=== PATIENT | female | born 1970 | race Caucasian/White ===

== ENCOUNTER 2025-06-23 09:04 | Outpatient (CLI) | payer OTHER, SELFPAY | END 2025-06-23 09:05 | disposition home or self-care (01) | LOC: NFLDREF 06-26 17:23 | PROVIDERS: PCP Family Medicine; Referring Provider Family Medicine; Visit Provider Family Medicine | DX: Z00.00 Encounter for general adult medical examination without abnormal findings (principal); Z13.6 Encounter for screening for cardiovascular disorders | CPT/HCPCS: 80053; 80061 ==